=== PATIENT | female | born 1980 | race Caucasian/White ===

== ENCOUNTER 2016-07-10 15:48 | Emergency (ER) | payer OTHER | END 2016-07-10 16:46 | disposition home or self-care (01) | LOC: ED 15:48 | DX: S05.02XA Injury of conjunctiva and corneal abrasion without foreign body, left eye, initial encounter (principal); L53.9 Erythematous condition, unspecified; F15.10 Other stimulant abuse, uncomplicated; X58.XXXA Exposure to other specified factors, initial encounter ==